=== PATIENT | female | born 2000 | race Caucasian/White ===

== ENCOUNTER → 2018-06-04 | Outpatient (REF) | LOC: M LAB LCGH 15:11 | PROVIDERS: ATTEND Physician Assistant | DX: Z00.00 Encounter for general adult medical examination without abnormal findings (principal) ==

== ENCOUNTER → 2018-10-28 | Outpatient (REF) | payer OTHER | LOC: M LAB LCGH 13:41 | PROVIDERS: ATTEND Obstetrics & Gynecology | DX: L72.0 Epidermal cyst (principal) ==

== ENCOUNTER → 2018-11-12 | Outpatient (REF) | payer OTHER ==
[2018-11-12 18:37] LABS: AMORPHOUS SEDIMENT MODERATE (NEGATIVE); APPEARANCE, URINE TURBID (CLEAR); BACTERIA, URINE AUTO NEGATIVE (NEGATIVE); BILIRUBIN, URINE AUTO NEGATIVE (NEGATIVE); BLOOD, URINE BLOOD NEGATIVE (NEGATIVE); COLOR, URINE YELLOW (YELLOW); GLUCOSE, URINE (UA) AUTO NEGATIVE (NEGATIVE); KETONE, URINE AUTO NEGATIVE (NEGATIVE); LEUKOCYTE ESTERASE, URINE AUTO 1+ (NEGATIVE); MUCUS, URINE SMALL (NEGATIVE); NITRITE, URINE AUTO NEGATIVE (NEGATIVE); PROTEIN, URINE AUTO NEGATIVE (NEGATIVE); RBC, URINE AUTO 3 /HPF (0-3); SPECIFIC GRAVITY URINE AUTO 1.019 (1.002-1.035); SQUAMOUS EPITHELIAL CELL UR AU 2 /HPF (0-6); UROBILINOGEN, URINE AUTO 0.2 mg/dL (0.0-2.0); WBC, URINE AUTO 7 /HPF (0-3)
== END ==
LOC: M SMT 17:25
PROVIDERS: ATTEND Nurse Practitioner Family
DX: N39.41 Urge incontinence (principal)

== ENCOUNTER → 2018-12-29 | Outpatient (REF) | payer OTHER | LOC: M SMT 17:11 | PROVIDERS: ATTEND Specialist | DX: N89.8 Other specified noninflammatory disorders of vagina (principal) ==

== ENCOUNTER → 2019-08-26 | Outpatient (REF) | payer OTHER ==
[2019-08-27 11:26] LABS: APPEARANCE, URINE HAZY (CLEAR); BACTERIA, URINE AUTO 1+ (NEGATIVE); BILIRUBIN, URINE AUTO NEGATIVE (NEGATIVE); BLOOD, URINE BLOOD NEGATIVE (NEGATIVE); CALCIUM OXALATE CRYSTALS MODERATE; COLOR, URINE AMBER (YELLOW); GLUCOSE, URINE (UA) AUTO NEGATIVE (NEGATIVE); KETONE, URINE AUTO NEGATIVE (NEGATIVE); LEUKOCYTE ESTERASE, URINE AUTO NEGATIVE (NEGATIVE); MUCUS, URINE SMALL (NEGATIVE); NITRITE, URINE AUTO POSITIVE (NEGATIVE); PROTEIN, URINE AUTO NEGATIVE (NEGATIVE); RBC, URINE AUTO 1 /HPF (0-3); SPECIFIC GRAVITY URINE AUTO 1.023 (1.002-1.035); SQUAMOUS EPITHELIAL CELL UR AU 4 /HPF (0-6); WBC, URINE AUTO 3 /HPF (0-3)
== END ==
LOC: M SMT 10:24
PROVIDERS: ATTEND Nurse Practitioner Family
DX: N39.41 Urge incontinence (principal)

== ENCOUNTER → 2020-07-06 | Outpatient (CLI) | payer OTHER ==
[~2020-07-06] MED LIST: ALBU8.5H; FLUTISP; TOPI200T7 PO; TRAZ-189; VENL150C43 PO
== END ==
LOC: M LABSMTC 10:05
PROVIDERS: ATTEND Anesthesiology
DX: Z01.812 Encounter for preprocedural laboratory examination (principal); Z11.52 Encounter for screening for COVID-19

== ENCOUNTER 2020-07-11 07:57 | Day surgery (SDC) | payer OTHER ==
[~2020-07-11] VITALS: Ht 167.6 cm; Wt 88.0 kg
[~2020-07-11 07:57] MED LIST changes: +LR 1,000 ML IV ONE
[2020-07-11] MEDS ORDERED: PERCOCET PO (09:18)
[2020-07-11] MEDS ORDERED: DOXY-350 PO (09:18)
[2020-07-11] MEDS ORDERED: MIDAZOLAM INJ 2MG/2ML VIAL (J2250 PER 1MG) As Ordered ONE (09:23)
[2020-07-11] MEDS ORDERED: ONDANSETRON 4MG/2ML VIAL As Ordered ONE (09:24)
[2020-07-11] MEDS ORDERED: propofoL 200 MG/20 ML VIAL As Ordered ONE ×2 (09:24→11:33)
[2020-07-11] MEDS ORDERED: dexameTHASONE 4 MG/ML 1ML VIAL (J1100 PER 1MG) As Ordered ONE (09:24)
[2020-07-11] MEDS ORDERED: fentaNYL 100 MCG/2 ML INJECTION (J3010) As Ordered ONE (09:24)
[2020-07-11] MEDS ORDERED: ROCURONIUM BROMIDE 50 MG/5 ML VIAL As Ordered ONE (09:24)
[2020-07-11] MEDS ORDERED: LIDOCAINE 2% 100MG/5ML SDV (FOR ANES.) As Ordered ONE (09:24)
[2020-07-11] MEDS ORDERED: LIDOCAINE W/EPINEPHRINE 1% 20ML VIAL As Ordered ONE (10:07)
[2020-07-11] MEDS ORDERED: OXYMETAZOLINE 0.05% NASAL SPRAY (AFRIN) As Ordered ONE (10:07)
[2020-07-11] MEDS ORDERED: METHYLENE BLUE 0.5% (5MG/ML) 10 ML AMP (PROVAYBLUE) As Ordered ONE (10:07)
[2020-07-11] MEDS ORDERED: SUGAMMADEX SODIUM 500 MG/5 ML VIAL (BRIDION) As Ordered ONE (10:40)
[2020-07-11] MEDS ORDERED: PHENYLephrine 500MCG 5ML (100MCG/ML) SYRINGE As Ordered ONE (10:41)
[2020-07-11] MEDS ORDERED: fentaNYL 100 MCG/2 ML INJECTION (J3010) IV PRN (11:50)
[2020-07-11] MEDS ORDERED: LR 1,000 ML IV SCH (11:50)
[2020-07-11] MEDS ORDERED: oxyCODONE 5MG TAB PO PRN (11:50)
[2020-07-11] MEDS ORDERED: ONDANSETRON 4MG/2ML VIAL IV PRN (11:50)
[2020-07-11] MEDS ORDERED: PERCOCET 5MG/325MG TAB PO PRN (11:50)
[2020-07-11] MEDS ORDERED: IBUPROFEN 800 MG TAB PO PRN (11:55)
[2020-07-11 12:30] VITALS: BP 111/66
--- NOTE | 2020-07-11 14:03 | RO ---
OPERATIVE NOTE DATE OF OPERATION: 07/11/2020 PREOPERATIVE DIAGNOSES: 1. Deviated septum. 2. Chronic rhinitis. POSTOPERATIVE DIAGNOSES: 1. Deviated septum. 2. Chronic [id number]. PROCEDURE: Septoplasty with partial reduction of inferior turbinates. SURGEON: Gruop Barros M.D. BUTTON TUFTING MACHINE OPERATOR: None. ANESTHESIA: General endotracheal. INDICATIONS FOR PROCEDURE: This is a 20-year-old with a long history of nasal obstruction and congestion. DESCRIPTION OF PROCEDURE: Satisfactory general endotracheal anesthesia was administered. Pharyngeal pack placed and the nose prepared for surgery by placing cotton-soaked pledgets with Afrin solution to the nasal cavity bilaterally. 1% Xylocaine with 1:100,000 epinephrine was used to inject into the nasal septum and inferior turbinates. A [place] incision was made on the left side of the nose. A mucoperichondrial flap and envelope was created on the left side of the nasal septum and carried down to the junction of the bony and cartilaginous septum. This was then with an elevator, and an envelope was then created on the right side of the septum. Barry scissors were used to make a cut high in the perpendicular plate in the midportion of the vomer, and a central segment of the bony septum was resected. Next, with the round knife on the Lee elevator, a strip of cartilage was resected from the floor of the nose, mobilizing the quadrilateral cartilage and creating a swinging door. Then, a central segment of the cartilaginous septum was resected, preserving a 1 cm dorsal and caudal strut. Double-action rongeur was used to take down deflected portions of the perpendicular plate, as well. Finally, the maxillary crest spur was taken down after elevating mucoperiostium off both sides of it with a chisel. A segment of the resected cartilage was morselized and placed back into the septal envelop. The incision was closed using an interrupted #5-0 chromic suture. Then, a #4-0 plain suture was placed in a [id number] fashion through the two leaves of mucoperichondrium to appose them. Next, turbinate surgery done. She had markedly hypertrophic turbinates. They were medially infractured and using the turbinate Coblator probe, two parallel passes of the probe were made with 10 second coblation times for each of the set points of the probe. Finally, suction cautery used to coagulate the posterior inferior tip of the inferior turbinate. A #15 blade was used to make an incision on the anterior tip of the inferior turbinate. Browning splints were placed in the nose and sewn to the columellar with #2-0 Prolene suture. The pharyngeal pack was removed and the throat suctioned. The patient was awakened, extubated, and sent to recovery in satisfactory condition. She will be discharged on Tylox for pain and doxycycline 100 mg b.i.d. She will be seen back in the office in three days for splint removal.
== END 2020-07-11 12:55 | disposition home or self-care (01) ==
LOC: M SDC 07:57
PROVIDERS: ATTEND Specialist
DX: J34.2 Deviated nasal septum (principal); J31.0 Chronic rhinitis; J45.909 Unspecified asthma, uncomplicated; G43.909 Migraine, unspecified, not intractable, without status migrainosus; F32.9 Major depressive disorder, single episode, unspecified; Z79.899 Other long term (current) drug therapy; Z88.0 Allergy status to penicillin; Z88.1 Allergy status to other antibiotic agents; Z88.8 Allergy status to other drugs, medicaments and biological substances
CPT/HCPCS: 30140; 30520; 81025; 88300; J1100; J2250; J2370; J2405; J3010; Q9968

== ENCOUNTER 2020-08-23 17:57 | Emergency (ER) | payer OTHER ==
[~2020-08-23] VITALS: Ht 165.1 cm; Wt 90.2 kg
[~2020-08-23 17:57] MED LIST changes: +DOXY-350 PO; -LR 1,000 ML IV ONE; +PERCOCET PO
[2020-08-23 18:05] VITALS: BP 140/88
[2020-08-23 18:39] LABS: HEMATOCRIT 40.8 % (36.0-47.0); HEMOGLOBIN 13.4 g/dl (12.0-15.5); MEAN CORPUSCULAR HEMOGLOBIN 29.2 pg (27.0-33.0); MEAN CORPUSCULAR HGB CONC 32.8 g/dl (32.0-36.5); MEAN CORPUSCULAR VOLUME 88.9 fl (80.0-96.0); PLATELET COUNT, AUTOMATED 308 10^3/uL (150-450); RED BLOOD COUNT 4.59 10^6/uL (4.00-5.40); WHITE BLOOD COUNT 9.3 10^3/uL (4.0-10.0)
[2020-08-23 19:06] LABS: AMPHETAMINES LEVEL URINE POSITIVE (NEGATIVE); BARBITURATES URINE NEGATIVE (NEGATIVE); BENZODIAZEPINES URINE POSITIVE (NEGATIVE); CANNABINOIDS URINE NEGATIVE (NEGATIVE); COCAINE METABOLITE URINE NEGATIVE (NEGATIVE); METHADONE URINE NEGATIVE (NEGATIVE); OPIATES URINE NEGATIVE (NEGATIVE); PHENCYCLIDINE URINE NEGATIVE (NEGATIVE)
[2020-08-23 19:08] LABS: HCG, SERUM QUALITATIVE NEGATIVE (NEGATIVE)
[2020-08-23 19:21] LABS: ACETAMINOPHEN LEVEL < 2.0 UG/ML (10.0-30.0); ALBUMIN 4.6 GM/DL (3.2-5.2); ALT/SGPT 24 U/L (12-78); BILIRUBIN,DIRECT 0.2 MG/DL (0.0-0.2); BILIRUBIN,TOTAL 0.9 MG/DL (0.2-1.0); BLOOD UREA NITROGEN 10 MG/DL (7-18); CALCIUM LEVEL 8.7 MG/DL (8.5-10.1); CARBON DIOXIDE LEVEL 26 MEQ/L (21-32); CHLORIDE LEVEL 108 MEQ/L (98-107); CREATININE FOR GFR 1.05 MG/DL (0.55-1.30); ETHYL ALCOHOL (ETHANOL) < 0.003 % (0.000-0.010); GLOMERULAR FILTRATION RATE > 60.0 (>60); GLUCOSE, FASTING 86 MG/DL (70-100); POTASSIUM SERUM 3.7 MEQ/L (3.5-5.1); SALICYLATE LEVEL < 1.7 MG/DL (5.0-30.0); SODIUM LEVEL 138 MEQ/L (136-145); TOTAL PROTEIN 7.6 GM/DL (6.4-8.2)
== END 2020-08-23 23:28 | disposition home or self-care (01) ==
LOC: M ED 17:57
DX: F43.0 Acute stress reaction (principal); F33.9 Major depressive disorder, recurrent, unspecified; Z79.899 Other long term (current) drug therapy; Z79.51 Long term (current) use of inhaled steroids; Z88.0 Allergy status to penicillin; Z88.1 Allergy status to other antibiotic agents

== ENCOUNTER 2020-09-16 18:05 | Emergency (ER) | payer OTHER ==
[~2020-09-16] VITALS: Ht 165.1 cm; Wt 90.9 kg
[2020-09-16] MEDS ORDERED: PHEN1TAB73 PO (18:30)
[2020-09-16] MEDS ORDERED: RIZA10TA58 PO (18:30)
[2020-09-16] MEDS ORDERED: OXYB-54 PO (18:30)
[2020-09-16] MEDS ORDERED: BUPR300T92 PO (18:30)
[2020-09-16] MEDS ORDERED: ALPR0.25 PO (18:30)
[2020-09-16] MEDS ORDERED: NS 1,000 ML IV ONE (19:15)
[2020-09-16 19:41] LABS: BASO # 0.1 10^3/uL (0.0-0.2); BASO % 0.7 % (0.0-1.0); EOS # 0.2 10^3/uL (0.0-0.5); EOS % 2.2 % (0.0-3.0); HEMATOCRIT 40.5 % (36.0-47.0); LYMPH # 1.7 10^3/uL (1.5-5.0); MEAN CORPUSCULAR HEMOGLOBIN 28.5 pg (27.0-33.0); MEAN CORPUSCULAR HGB CONC 32.1 g/dl (32.0-36.5); MEAN CORPUSCULAR VOLUME 88.8 fl (80.0-96.0); MONO # 0.4 10^3/uL (0.0-0.8); MONO % 5.7 % (2.0-8.0); PLATELET COUNT, AUTOMATED 263 10^3/uL (150-450); RED BLOOD COUNT 4.56 10^6/uL (4.00-5.40); WHITE BLOOD COUNT 7.4 10^3/uL (4.0-10.0)
[2020-09-16 20:03] LABS: BLOOD UREA NITROGEN 11 MG/DL (7-18); CALCIUM LEVEL 8.4 MG/DL (8.5-10.1); CARBON DIOXIDE LEVEL 23 MEQ/L (21-32); CHLORIDE LEVEL 114 MEQ/L (98-107); GLOMERULAR FILTRATION RATE > 60.0 (>60); GLUCOSE, FASTING 86 MG/DL (70-100); SODIUM LEVEL 141 MEQ/L (136-145)
--- NOTE | 2020-09-16 20:17 | REPVR ---
PROCEDURE INFORMATION: Exam: CT Head Without Contrast Exam date and time: 09/16/2020 7:37 PM Age: 20 years old Clinical indication: Injury or trauma; Fall; Blunt trauma (contusions or hematomas) TECHNIQUE: Imaging protocol: Computed tomography of the head without contrast. Radiation optimization: All CT scans at this facility use at least one of these dose optimization techniques: automated exposure control; mA and/or kV adjustment per patient size (includes targeted exams where dose is matched to clinical indication); or iterative reconstruction. COMPARISON: No relevant prior studies available. FINDINGS: Brain: No intracranial hemorrhage or extra-axial fluid collection. No evidence of mass effect or midline shift. Alejo-white matter differentiation is intact. Cerebral ventricles: No ventriculomegaly. Paranasal sinuses: Visualized sinuses are unremarkable. No fluid levels. Mastoid air cells: Unremarkable. Bones/joints: No acute osseus lesion or fracture. Soft tissues: Unremarkable. IMPRESSION: No acute intracranial pathology. Electronically signed by: Jean Marie Rollins On 09/16/2020 20:17:05 PM
--- NOTE | 2020-09-16 20:18 | REPVR ---
PROCEDURE INFORMATION: Exam: CT Cervical Spine Without Contrast Exam date and time: 09/16/2020 7:37 PM Age: 20 years old Clinical indication: Injury or trauma; Fall; Blunt trauma TECHNIQUE: Imaging protocol: Computed tomography images of the cervical spine without contrast. Radiation optimization: All CT scans at this facility use at least one of these dose optimization techniques: automated exposure control; mA and/or kV adjustment per patient size (includes targeted exams where dose is matched to clinical indication); or iterative reconstruction. COMPARISON: No relevant prior studies available. FINDINGS: Bones/joints: The cervical lordosis is normal. Vertebral body heights are maintained. No locked or perched facets. No acute cervical spine fracture. The dens is intact. Atlantoaxial intervals are normal. Discs/Spinal canal/Neural foramina: Disc space heights are normal. Lungs: Lung apices are clear. Soft tissues: Unremarkable. IMPRESSION: No acute cervical spine fracture. Electronically signed by: Jean Marie Rollins On 09/16/2020 20:17:53 PM
[2020-09-16 21:10] VITALS: BP 118/74
== END 2020-09-16 21:15 | disposition home or self-care (01) ==
LOC: EDBD 18:05 → M ED 18:05
DX: R55 Syncope and collapse (principal); E86.0 Dehydration; G43.909 Migraine, unspecified, not intractable, without status migrainosus; F41.9 Anxiety disorder, unspecified; F33.9 Major depressive disorder, recurrent, unspecified; Z88.0 Allergy status to penicillin; Z88.1 Allergy status to other antibiotic agents; Z88.8 Allergy status to other drugs, medicaments and biological substances; Z79.899 Other long term (current) drug therapy

== ENCOUNTER 2021-05-14 19:05 | Emergency (ER) | payer OTHER ==
[~2021-05-14] VITALS: Ht 167.6 cm; Wt 95.8 kg
[~2021-05-14 19:05] MED LIST changes: +ALPR0.25 PO; +BUPR300T92 PO; +OXYB-54 PO; +PHEN1TAB73 PO; +RIZA10TA58 PO
[2021-05-14 19:06] VITALS: BP 109/69
== END 2021-05-14 20:45 | disposition left against medical advice (07) ==
LOC: M ED 19:05
DX: Z53.21 Procedure and treatment not carried out due to patient leaving prior to being seen by health care provider (principal)